=== PATIENT | male | born 1990 | race Caucasian/White ===

== ENCOUNTER 2021-01-12 00:57 | Emergency (ER) | payer OTHER, SELFPAY ==
--- NOTE | ~2021-01-12 | XR_ITS ---
EXAMINATION: RIGHT HAND 3 VIEWS CLINICAL INFORMATION: Laceration. COMPARISON: None. TECHNIQUE: PA, lateral, oblique views of the right hand were obtained. FINDINGS: There are no fractures or dislocations. There is no significant soft tissue swelling. There are no demonstrable radiopaque foreign bodies. XR/XR hand RT 2V IMPRESSION: No acute fracture. No radiopaque foreign bodies identified.
[2021-01-12 01:36] VITALS: BP 134/76; PULSE 78; RESP 18; TEMP 37.2; O2SAT 98; BMI 24.3
--- NOTE | 2021-01-12 02:46 | ED.EXTPRO ---
HPI - Extremity Problem General Chief complaint: Extremity Injury, Upper Stated complaint: Lac/ Work Inj Time Seen by Provider: 01/12/21 02:17 Source: patient Mode of arrival: ambulatory Limitations: no limitations History of Present Illness HPI Narrative: 30-year-old male with no significant past medical history presents for an injury sustained at work. He was trying to free his hand he and got the lateral aspect of his palm caught on a piece of sheet metal. He presents with a 4 cm laceration. He does not complain of any other injury, has full range of motion to all of his digits, and cannot recall his last Tdap vaccine. MD Complaint: extremity pain Onset (ago): hour(s) (Within the hour of arrival) Pain Consistency: constant Location: right and upper extremity Severity scale (1-10): 7 Quality: aching Radiation: none Relieving factors: nothing Exacerbating factors: range of motion and palpation Associated symptoms: denies other symptoms Related Data Previous Rx's Medication Instructions Recorded amoxicillin-pot clavulanate 1 tab PO Q12H 7 Days #14 tab 01/12/21 [Augmentin] Allergies Allergy/AdvReac Type Severity Reaction Status Date / Time No Known Allergies Allergy Unverified 06/14/20 19:05 [No Known Allergies*] Review of Systems Review of Systems: Constitutional: No Fever, No Chills ENT/Mouth: No Ear Pain, No Hoarseness, No sore throat Eyes: No Eye Pain, No Swelling, No Redness, No Foreign Body Cardiovascular: No Chest Pain, No SOB Respiratory: No Cough, No Dyspnea Gastrointestinal: No Nausea, No Vomiting, No Diarrhea, No abdominal Pain Genitourinary: No Dysuria, No Hematuria Musculoskeletal: positive right hand pain, No Myalgias, No Joint Swelling Skin: Positive right hand laceration, No rash Neuro: No Weakness, No Numbness, No Paresthesias, No Loss of Consciousness, No Dizziness, No Headache Psych: No Anxiety/Panic, No Depression Heme/Lymph: no easy bruising, no Lymphadenopathy Endocrine: No Polyuria, No Polydipsia Yes all other systems are reviewed and are negative [facility] Past Medical History Attestation statement: The following information was validated with the patient. Source: old records reviewed Medical History Depression Surgical History History of dental surgery Social History Social History Advance Directives: No Advance Directives Information Provided: No Physical Exam Vital Signs: Vital Signs: Last Vital Signs Temp 98.9 F 01/12/21 01:36 Pulse 78 01/12/21 01:36 Resp 18 01/12/21 01:36 BP 134/76 01/12/21 01:36 Pulse Ox 98 01/12/21 01:36 Body Mass Index 24.3 Appearance: Alert. Oriented X3. No acute distress. Eyes: Pupils equal, round and reactive to light. ENT: Pharynx normal. Neck: Normal inspection. Neck supple. CVS: Normal heart rate and rhythm. Pulses normal. Respiratory: No respiratory distress. Breath sounds normal. Abdomen: Soft and nontender. Skin: Positive 3 cm laceration to the lateral hypothenar on the right hand, Skin warm and dry. Normal skin color. Normal skin turgor. Extremities: Full range of motion to all extremities, no injury to other digits, no indication of tendon injury. Neuro: No motor deficit. No sensory deficit. Neurovascularly intact. Course Course Course Narrative: 30-year-old male presents with a laceration to the right hypothenar. Plan is for x-ray, Augmentin, and laceration repair. X-rays negative for foreign body, bone involvement or fracture. Please refer to procedure note for full details. Prepped and draped in sterile fashion, patient tolerated procedure well. Approximately 30 minute status post laceration repair, patient continues to have brisk capillary refill, full range of motion to all digits, strength 5/5, no indication of tendon injury. Patient will follow-up with work connection, will return in 14 days for suture removal. He will take Augmentin as directed. Will update Tdap vaccine today. Patient verbalized understanding of and agrees plan of care discharge home. Procedures Laceration Laceration 1: Site: hand Side (If applicable): right Size (cm): 4 Description: linear Depth: simple, single layer Local Anesthetic: lidocaine 2% Amount of anesthesia used (mL): 5 Pre-repair: wound explored, irrigated extensively and deep structures intact Skin layer closed with: nylon Size (cm): 4-0 Number of sutures: 6 Technique: simple, interrupted MDM - Extremity (Nontraumatic) MDM Narrative Medical decision making narrative: Right hand laceration Imaging Data Right hand x-ray: Attestation: I personally reviewed and interpreted this imaging study as follows: Radiologist's impression: EXAMINATION: RIGHT HAND 3 VIEWS CLINICAL INFORMATION: Laceration. COMPARISON: None. TECHNIQUE: PA, lateral, oblique views of the right hand were obtained. FINDINGS: There are no fractures or dislocations. There is no significant soft tissue swelling. There are no demonstrable radiopaque foreign bodies. XR/XR hand RT 2V IMPRESSION: No acute fracture. No radiopaque foreign bodies identified. Discharge Plan Discharge Clinical Impression: Laceration Patient Disposition: Home, Self-Care Instructions: Laceration (ED) Additional Instructions: You were evaluated for laceration to your hand. X-rays are negative for foreign body and bone involvement. We placed 6 sutures to your hand laceration. Please return in 14 days to have sutures removed. Please take Augmentin as directed. Take 1 tablet every 12 hours for the next 7 days. You may consider taking Motrin and Tylenol as needed for pain management. Please follow up with work connection for further care, as this is a work related injury. Thank you for choosing this emergency department for evaluation. Please follow-up with primary care physician as needed. Return to the emergency department for any new, concerning, or worsening symptoms. Prescriptions: New amoxicillin-pot clavulanate [Augmentin] 875-125 mg tablet 1 tab PO Q12H 7 Days Qty: 14 RF: 0 Referrals: Bobby Villatoro MD [Physician] - 2 days (Right hand laceration) Stand Alone Forms: Work/School Release
[2021-01-12] MEDS: Lidocaine HCl 2 % MPF 5 ML VIAL SUBCUT (02:55)
[2021-01-12] MEDS: Diphth,Pertus(ACell),Tet Adult 0.5 ML SYRINGE IM (02:56)
[2021-01-12] MEDS: Amoxicillin/Potassium Clav 875 MG TABLET PO (02:57)
== END 2021-01-12 03:39 | disposition home or self-care (01) ==
PROVIDERS: Emergency Provider Emergency Medicine
DX: S61.411A Laceration without foreign body of right hand, initial encounter (principal); M79.641 Pain in right hand; W26.9XXA Contact with unspecified sharp object(s), initial encounter; Y93.9 Activity, unspecified; Y92.9 Unspecified place or not applicable; Y99.0 Civilian activity done for income or pay
CPT/HCPCS: 12002; 73120; 90471; 90715; 99283; 99284

== ENCOUNTER → 2021-01-16 12:35 | Outpatient (BNVA) | payer OTHER, SELFPAY | PROVIDERS: Visit Provider Physician Assistant | DX: S61.411A Laceration without foreign body of right hand, initial encounter (principal); X58.XXXA Exposure to other specified factors, initial encounter | CPT/HCPCS: 99203 ==

== ENCOUNTER → 2021-01-21 11:31 | Outpatient (BNVA) | payer OTHER, SELFPAY | PROVIDERS: Visit Provider Physician Assistant | DX: S61.411A Laceration without foreign body of right hand, initial encounter (principal); X58.XXXA Exposure to other specified factors, initial encounter; Z48.02 Encounter for removal of sutures | CPT/HCPCS: 99212; 99213 ==